=== PATIENT | male | born 1940 | race Caucasian/White ===

== ENCOUNTER 2016-10-13 20:06 | Emergency (ER) | payer MEDICARE ==
[~2016-10-13] VITALS: Ht 180.3 cm; Wt 72.7 kg
[2016-10-13 20:14] VITALS: TEMP 98.9
[2016-10-13] MEDS ORDERED: LIPITOR 10MG10 MG PO (20:19)
[2016-10-13] MEDS ORDERED: LEVOXYL0.1 MG PO (20:19)
[2016-10-13] MEDS ORDERED: MULTI VITAMINS1 TAB PO (20:20)
[2016-10-13] MEDS ORDERED: LEVAQUIN 750MG750 M1 PO (21:57)
[2016-10-13 22:05] VITALS: BP 130/80; PULSE 78
== END 2016-10-13 22:04 | disposition home or self-care (01) ==
LOC: COL.ER 20:06
DX: J18.9 Pneumonia, unspecified organism (principal)

== ENCOUNTER 2017-03-19 06:01 | Day surgery (SDC) | payer MEDICARE ==
[~2017-03-19] VITALS: Ht 180.3 cm; Wt 74.5 kg
[~2017-03-19 06:01] MED LIST: LEVAQUIN 750MG750 M1 PO; LEVOXYL0.1 MG PO; LIPITOR 10MG10 MG PO; MULTI VITAMINS1 TAB PO
[2017-03-19 06:38] VITALS: BP 137/81; PULSE 45; TEMP 97.1
[2017-03-19] MEDS ORDERED: SYNTHROID0.1 MG/TAB PO (06:46)
[2017-03-19 07:50] VITALS: BP 106/77; PULSE 49; TEMP 97.5
[2017-03-19 08:00] VITALS: BP 107/73; PULSE 52
[2017-03-19 08:15] VITALS: BP 96/67; PULSE 51
[2017-03-19 13:29] VITALS: BP 110/72; PULSE 54
== END 2017-03-19 08:32 | disposition home or self-care (01) ==
LOC: SDCO 06:01
DX: Z12.11 Encounter for screening for malignant neoplasm of colon (principal); D12.0 Benign neoplasm of cecum; Z86.010 Personal history of colon polyps
CPT/HCPCS: OP; J2250; J3010; J7030

== ENCOUNTER → 2018-03-16 | Outpatient (CLI) | payer MEDICARE ==
[~2018-03-16] MED LIST changes: +SYNTHROID0.1 MG/TAB PO
== END ==
LOC: COL.VAS 08:15
DX: I65.21 Occlusion and stenosis of right carotid artery (principal)

== ENCOUNTER → 2018-03-30 | Outpatient (CLI) | payer MEDICARE | LOC: COL.VAS 10:00 | DX: I10 Essential (primary) hypertension (principal); I35.0 Nonrheumatic aortic (valve) stenosis; I34.0 Nonrheumatic mitral (valve) insufficiency; I07.1 Rheumatic tricuspid insufficiency ==

== ENCOUNTER 2018-05-17 09:18 | Outpatient (CLI) | payer MEDICARE ==
[2018-05-17] VITALS (8 sets, daily range): BP systolic 121–141; BP diastolic 74–89; PULSE 42–59; TEMP 97.8–98.1
[~2018-05-17] VITALS: Ht 180.3 cm; Wt 75.5 kg
[2018-05-17 10:04] LABS: HEMOGLOBIN 14.8 g/dl (13.5-18.0); MEAN CELL VOLUME 97 fl (80.0-100.0); MEAN CORPUSCULAR HEMOGLOBIN 33 pg (27.0-31.0); MEAN CORPUSCULAR HGB CONC 34 g/dl (33.0-37.0); MEAN PLATELET VOLUME 10.7 fl (7.4-10.4); PLATELET COUNT 119 K/mm3 (130-400); RED BLOOD COUNT 4.55 M/mm3 (4.20-5.60); REDCELL DISTRIBUTION WIDTH-CV 12.7 % (11.5-14.5)
[2018-05-17 10:09] LABS: PROTHROMBIN TIME 11.2 SECONDS (9.7-12.8)
[2018-05-17 10:14] LABS: CALCIUM 9.6 mg/dL (8.4-10.2); CREATININE, serum 0.91 mg/dL (0.66-1.25); POTASSIUM 4.5 mmol/L (3.4-5.0)
== END 2018-05-17 17:12 | disposition home or self-care (01) ==
LOC: COL.RAD 09:18
PROVIDERS: Internal Medicine Cardiovascular Disease
DX: I35.0 Nonrheumatic aortic (valve) stenosis (principal); R00.1 Bradycardia, unspecified
CPT/HCPCS: G9654; J2704

== ENCOUNTER → 2018-10-14 | Outpatient (CLI) | payer MEDICARE | LOC: COL.RAD 11:19 | DX: Z01.818 Encounter for other preprocedural examination (principal); I35.9 Nonrheumatic aortic valve disorder, unspecified; M95.4 Acquired deformity of chest and rib; I70.0 Atherosclerosis of aorta ==

== ENCOUNTER 2019-03-22 14:56 | Outpatient (RCR) | payer MEDICARE | END 2019-03-24 06:31 | disposition home or self-care (01) | LOC: COL.CR 14:56 | DX: Z48.812 Encounter for surgical aftercare following surgery on the circulatory system (principal); Z95.2 Presence of prosthetic heart valve; I35.0 Nonrheumatic aortic (valve) stenosis ==

== ENCOUNTER 2022-04-03 13:24 | Emergency (ER) | payer MEDICARE ==
[~2022-04-03] VITALS: Ht 180.3 cm; Wt 72.7 kg
[2022-04-03 13:41] VITALS: TEMP 98.2
[2022-04-03] MEDS ORDERED: CEPHALEXIN500 M1 PO (15:43)
[2022-04-03 16:08] VITALS: BP 122/65; PULSE 65
== END 2022-04-03 16:08 | disposition home or self-care (01) ==
LOC: COL.ER 13:24
DX: S61.213A Laceration without foreign body of left middle finger without damage to nail, initial encounter (principal); S61.215A Laceration without foreign body of left ring finger without damage to nail, initial encounter; S05.12XA Contusion of eyeball and orbital tissues, left eye, initial encounter; S09.90XA Unspecified injury of head, initial encounter; Z88.1 Allergy status to other antibiotic agents; Z23 Encounter for immunization; Z79.01 Long term (current) use of anticoagulants; W18.30XA Fall on same level, unspecified, initial encounter; W22.8XXA Striking against or struck by other objects, initial encounter; Y93.01 Activity, walking, marching and hiking